=== PATIENT | female | born 1955 | race Caucasian/White ===

== ENCOUNTER → 2022-02-23 | Outpatient (CLI) | payer MEDICARE, SELFPAY ==
[2022-02-23 10:49] LABS: ALB/GLOB Ratio 1.1 RATIO (0.9-2.4); AST(SGOT) 16 U/L (15-37); Alanine Aminotransfer ALT/SGPT 24 U/L (13-56); Alkaline Phosphatase 64 U/L (45-117); Anion Gap 5 (5-15); BUN 13 mg/dL (7-18); BUN/Creat Ratio 14.2 RATIO (10-20); Calcium,Total 9.5 mg/dL (8.5-10.1); Chloride 109 mmol/L (98-107); Cholesterol 178 mg/dL (200); Creatinine, Serum 0.92 mg/dL (0.55-1.02); EST Glomerular Filtration Rate 65 mL/min (>60); Est Glom Filt Rate - Afr Amer 79 mL/min (>60); Globulin 3.8 g/dL (2.2-4.2); Glucose 105 mg/dL (74-106); High Density Lipoprotein 50 mg/dL; Magnesium 2.1 mg/dL (1.6-2.6); Potassium 4.4 mmol/L (3.5-5.1); Protein, Total 7.8 g/dL (6.4-8.2); Sodium Level 141 mmol/L (136-145); Thyroid Stim Hormone (TSH) 2.09 uIU/mL (0.358-3.74); Triglycerides 157 mg/dL; Very Low Density Lipoprotein 31 mg/dL (5-40)
[2022-02-23 11:35] LABS: Vitamin D,25 Hydroxy 32.5 ng/mL
== END | disposition home or self-care (01) ==
PROVIDERS: PCP Family Medicine; Referring Provider Family Medicine; Visit Provider Family Medicine
DX: E78.5 Hyperlipidemia, unspecified (principal); Z86.39 Personal history of other endocrine, nutritional and metabolic disease
CPT/HCPCS: 36415; 80053; 80061; 82306; 82330; 83735; 84443

== ENCOUNTER → 2022-08-23 | Outpatient (CLI) | payer MEDICARE, SELFPAY ==
[2022-08-23 12:41] LABS: Anion Gap 3 (5-15); BUN 15 mg/dL (7-18); BUN/Creat Ratio 14.3 RATIO (10-20); Calcium,Total 10.2 mg/dL (8.5-10.1); Chloride 107 mmol/L (98-107); Cholesterol 165 mg/dL (200); Creatinine, Serum 1.05 mg/dL (0.55-1.02); EST Glomerular Filtration Rate 56 mL/min (>60); Est Glom Filt Rate - Afr Amer 67 mL/min (>60); Glucose 98 mg/dL (74-106); High Density Lipoprotein 52 mg/dL; Potassium 4.4 mmol/L (3.5-5.1); Sodium Level 138 mmol/L (136-145); Triglycerides 72 mg/dL; Very Low Density Lipoprotein 14 mg/dL (5-40)
== END | disposition home or self-care (01) ==
PROVIDERS: PCP Family Medicine; Referring Provider Family Medicine; Visit Provider Family Medicine
DX: E78.5 Hyperlipidemia, unspecified (principal)
CPT/HCPCS: 36415; 80048; 80061

== ENCOUNTER → 2023-08-30 | Outpatient (CLI) | payer MEDICARE, SELFPAY ==
[2023-08-30 12:26] LABS: Ionized Calcium 5.38 mg/dL (4.36-5.20)
[2023-08-30 12:52] LABS: PTHIN 13.2 pg/mL (18.4-80.1)
[2023-08-30 13:04] LABS: ALB/GLOB Ratio 1.1 RATIO (0.9-2.4); AST(SGOT) 21 U/L (15-37); Alanine Aminotransfer ALT/SGPT 29 U/L (13-56); Albumin, Serum 4.3 g/dL (3.2-5.0); Alkaline Phosphatase 66 U/L (45-117); Anion Gap 6 (5-15); BUN 14 mg/dL (7-18); BUN/Creat Ratio 12.4 RATIO (10-20); Calcium,Total 10.7 mg/dL (8.5-10.1); Chloride 105 mmol/L (98-107); Cholesterol 177 mg/dL (200); Creatinine, Serum 1.13 mg/dL (0.55-1.02); EST Glomerular Filtration Rate 51 mL/min (>60); Est Glom Filt Rate - Afr Amer 62 mL/min (>60); Globulin 3.8 g/dL (2.2-4.2); Glucose 104 mg/dL (74-106); High Density Lipoprotein 51 mg/dL; Phosphorus 3.6 mg/dL (2.5-4.9); Potassium 4.6 mmol/L (3.5-5.1); Protein, Total 8.1 g/dL (6.4-8.2); Sodium Level 139 mmol/L (136-145); Thyroid Stim Hormone (TSH) 1.75 uIU/mL (0.358-3.74); Triglycerides 117 mg/dL; Very Low Density Lipoprotein 23 mg/dL (5-40)
[2023-08-30 13:27] LABS: Vitamin D,25 Hydroxy 60.1 ng/mL
[2023-08-30 18:58] LABS: Ionized Calcium Order ORDER TUBE
== END | disposition home or self-care (01) ==
LOC: MFPLAB 10:55
PROVIDERS: PCP Family Medicine; Visit Provider Family Medicine
DX: M81.0 Age-related osteoporosis without current pathological fracture (principal); E78.5 Hyperlipidemia, unspecified
CPT/HCPCS: 36415; 80053; 80061; 82306; 82330; 83735; 83970; 84100; 84443

== ENCOUNTER → 2023-09-14 | Outpatient (CLI) | payer MEDICARE, SELFPAY ==
--- NOTE | 2023-09-14 13:57 | BD_ITS ---
STUDY: DUAL ENERGY X-RAY ABSORPTIOMETRY / DXA REASON FOR EXAM: Female, 68 years old. [id number] TECHNIQUE: Bone Mineral Density (BMD) measurements of lumbar spine and bilateral hips were obtained. COMPARISON: None. FINDINGS: Lumbar Spine (L1-L4): g/cm2 (0.815) / T-score (-2.1) / Z-score (-0.1) Findings are suggestive of osteopenia with a high fracture risk. Left Femur Total: g/cm2 (0.855) / T-score (-0.7) / Z-score (0.7) Left Femoral Neck: g/cm2 (0.702) / T-score (-1.3) / Z-score (0.4) Right Femur Total: g/cm2 (0.851) / T-score (-0.7) / Z-score (0.7) Right Femoral Neck: g/cm2 (0.682) / T-score (-1.5) / Z-score (0.2) BD/Dexa Bone Density Study IMPRESSION: The patient is considered osteoporotic as outlined below according to World Alvin Organization (WHO) criteria with a high fracture risk. Reference Information: The T-score is the number of standard deviations above or below the standard which is normal for young adults at their peak bone mineral density. The World Health Organization (WHO) interprets the T-scores as follows: Above -1 Normal bone density Between -1 and -2.5 Osteopenia Equal to / or below -2.5 Osteoporosis As a practical clinical guideline, osteopenia may be graded as follows: Mild -1 through -1.5 Moderate -1.6 through -2.0 Severe -2.1 through -2.4 The Z-score is the number of standard deviations above or below age-matched controls. A Z-score of less than -1.5 would be considered abnormal. References: 1. NIH Osteoporosis and Related Bone Diseases www osteo.org 2. International Society for Clinical Densitometry www iscd.org 3. National Osteoporosis Foundation www nof.org Electronically Signed: Vitaliy Velarde MD at 14:38 EDT ,
== END | disposition home or self-care (01) ==
PROVIDERS: PCP Family Medicine; Referring Provider Family Medicine; Visit Provider Family Medicine
DX: Z00.00 Encounter for general adult medical examination without abnormal findings (principal); Z78.0 Asymptomatic menopausal state
CPT/HCPCS: 77080

== ENCOUNTER → 2023-12-29 | Outpatient (CLI) | payer MEDICARE, SELFPAY ==
[2023-12-29 09:50] LABS: Ionized Calcium Order ORDER TUBE
[2023-12-29 10:21] LABS: Ionized Calcium 5.07 mg/dL (4.36-5.20)
[2023-12-29 11:06] LABS: Anion Gap 8 (5-15); BUN 13 mg/dL (7-18); BUN/Creat Ratio 13.4 RATIO (10-20); Calcium,Total 9.6 mg/dL (8.5-10.1); Chloride 107 mmol/L (98-107); Creatinine, Serum 0.97 mg/dL (0.55-1.02); EST Glomerular Filtration Rate 61 mL/min (>60); Est Glom Filt Rate - Afr Amer 73 mL/min (>60); Glucose 102 mg/dL (74-106); Potassium 4.6 mmol/L (3.5-5.1); Sodium Level 139 mmol/L (136-145)
[2023-12-29 13:35] LABS: PTHIN 21.3 pg/mL (18.4-80.1)
== END | disposition home or self-care (01) ==
LOC: MFPLAB 08:41
PROVIDERS: PCP Family Medicine; Visit Provider Family Medicine
DX: E83.52 Hypercalcemia (principal)
CPT/HCPCS: 36415; 80048; 82330; 83970

== ENCOUNTER → 2024-08-27 | Outpatient (CLI) | payer MEDICARE, SELFPAY ==
[2024-08-27 11:31] LABS: Cholesterol 169 mg/dL (<=200); High Density Lipoprotein 54 mg/dL; Low Density Lipoprotein Calc. 99 mg/dL; Triglycerides 77 mg/dL; Very Low Density Lipoprotein 15 mg/dL (5-40); cholesterol:hdl ratio screen 3.11
[2024-08-27 11:32] LABS: ALB/GLOB Ratio 1.5 RATIO (0.9-2.4); AST(SGOT) 18 U/L (<=31); Alanine Aminotransfer ALT/SGPT 13 U/L (<=34); Albumin, Serum 4.6 g/dL (3.4-4.8); Alkaline Phosphatase 66 U/L (35-104); Anion Gap 12 (5-15); BUN 17 mg/dL (4-19); BUN/Creat Ratio 17.1 RATIO (10-20); Calcium,Total 10.3 mg/dL (7.6-11.0); Carbon Dioxide 23.8 mmol/L (21.0-32.0); Chloride 105 mmol/L (98-108); Creatinine, Serum 0.98 mg/dL (0.70-1.20); EST Glomerular Filtration Rate 62 (>60); Glucose 106 mg/dL (70-99); Potassium 4.5 mmol/L (3.3-5.1); Protein, Total 7.6 g/dL (5.9-8.4); Sodium Level 141 mmol/L (133-145); Total Bilirubin 0.74 mg/dL (0.00-1.30)
[2024-08-27 13:09] LABS: Vitamin D,25 Hydroxy 45.4 ng/mL (30-100)
== END | disposition home or self-care (01) ==
LOC: MTLAB 08:51
PROVIDERS: PCP Family Medicine; Referring Provider Family Medicine; Visit Provider Family Medicine
DX: Z00.00 Encounter for general adult medical examination without abnormal findings (principal)
CPT/HCPCS: 36415; 80053; 80061; 82306; 84443

== ENCOUNTER → 2024-09-03 | Outpatient (CLI) | payer MEDICARE, SELFPAY ==
--- NOTE | 2024-09-03 10:48 | RAD_ITS ---
PROCEDURE: CERV SPINE 4 OR 5 VIEWS 09/03/2024 REASON FOR EXAM: NECK PAIN TECHNIQUE: 5 views of the cervical spine. COMPARISON: None. FINDINGS: Mild osteopenia of the visualized bones. Reversal of the cervical lordosis, probably muscular spasm and pain. Grade 1 anterolisthesis of C4 on C5 measuring 4.2 mm. There are diffuse spondylotic changes. Findings are demonstrated to by diffuse disc space narrowing, osteophyte formation and degenerative endplate sclerosis. There is diffuse facet joint arthropathy with secondary bilateral neural foramina narrowing. No fracture or dislocation is seen. No aggressive lytic or blastic bony lesion is noted. Mild bilateral multifocal neural foraminal narrowing is noted from C2-C6 levels. RAD/Cerv Spine 4 or 5 Views IMPRESSION: Spondylosis. Reading Location: [facility]
== END | disposition home or self-care (01) ==
LOC: MTRAD 10:43
PROVIDERS: PCP Family Medicine; Referring Provider Family Medicine; Visit Provider Family Medicine
DX: M54.2 Cervicalgia (principal)
CPT/HCPCS: 72050

== ENCOUNTER 2024-10-07 03:34 | Emergency (ER) | payer MEDICARE, SELFPAY ==
[2024-10-07 03:34] VITALS: BP 159/94; PULSE 90; RESP 16; TEMP 36.3; O2SAT 99; BMI 30.7
--- NOTE | 2024-10-07 04:01 | EDS_ITS ---
HPI HPI - Female History of Present Illness Chief Complaint: Female C/O Detail of Chief Complaint: Pain right groin region Informant: patient and spouse/S.O. Pain Pain: Negative for Pelvic Pain, Vulvar Pain or Vaginal Pain Bleeding Issue: Positive for - (Status post hysterectomy with bilateral salpingo- oophorectomy); Negative for Vaginal bleeding, Passing clots or Passing tissue Associated Symptoms Associated Symptoms: Negative for Dysuria, Frequency, Urgency or Hematuria Narrative Narrative: Patient is a 69-year-old woman status post hysterectomy with bilateral salpingo- oophorectomy presents with pain in the right groin area. Symptoms started on Tuesday. Certain movements exacerbate her pain. She denies nausea, vomiting or diarrhea. She denies constipation. She denies dysuria, frequency, urgency or hematuria. She denies vaginal bleeding or vaginal discharge. There is no history of renal ureterolithiasis. She denies flank pain. She initially pointed to the area of the inguinal ring. She states it does go laterally. She denies flank pain. There is no history of direct trauma. She states she has 12 grandkids and she lifts them a lot. She did see her primary care physician who prescribed a muscle relaxant and meloxicam. She has not taken any meloxicam because she thought it was a muscle relaxant and has been taking the muscle relaxant, Flexeril with no improvement. She took 2 ibuprofen tablets yesterday and 2 tablets at 3 AM. She states she did have improvement after taking the 2 ibuprofen tablets yesterday. stated she almost canceled her doctor's appointment. She has not noted a rash. Patient stated she is nervous/concerned because she thinks it something serious. Prior similar symptoms: Yes Recent Illness/Hospitalization: No PFSH PFSH Medical History (Updated 10/07/24 @ 04:[address] Gerardo White MD) FH: total abdominal hysterectomy and bilateral salpingo-oophorectomy Allergy/AdvReac Type Severity Reaction Status Date / Time sulfamethoxazole (From Allergy Anaphylaxis Verified 10/07/24 03:38 Bactrim) Tetanus Vaccines and Toxoid Allergy Rash Verified 10/07/24 03:38 trimethoprim (From Bactrim) Allergy Anaphylaxis Verified 10/07/24 03:38 Social History (Updated 10/07/24 @ 04:[address] Gerardo White MD) household members: spouse Smoking Status: Unknown if ever smoked ROS ROS ED Constitutional Constitutional ED: Denies chills, fever(s), subjective or sweats Respiratory/Chest Respiratory/Chest: Denies cough, dyspnea or dyspnea on exertion Gastrointestinal Gastrointestinal: Denies abdominal pain, constipation, diarrhea, melena, nausea or vomiting Genitourinary Genitourinary ED: Denies dysuria, hematuria or urinary frequency Musculoskeletal Musculoskeletal: Reports other Details: Per HPI narrative ; Denies arthralgias, myalgias or neck pain Integumentary Denies abscess, Abrasions or rash Neurologic Neurologic: Denies paresthesias or weakness Psychiatric Psychiatric: Reports anxiety Hematologic/Lymphatic Hematologic/Lymphatic: Denies easy bleeding or easy bruising EXAM Physical Exam Const Vital Signs: 10/07/24 03:34 Temperature 97.4 F L Temperature Source Oral Pulse Rate 90 Respiratory Rate 16 Blood Pressure 159/94 H Blood Pressure Mean 115 Pulse Ox 99 Positive well nourished Constitutional Narrative: BMI is 30.7. General Appearance ED: NAD; Negative for pallor HEENT Reports moist mucous membranes HEENT Narrative: Head is atraumatic normocephalic. Ears normal. Nares patent. Eyes PERRL and EOMs intact bilaterally General Eye ED: Yes scleral icterus Neck supple and no JVD Resp normal respiratory effort Cardio regular rate and regular rhythm GI normal to inspection, nondistended, normoactive bowel sounds, soft to palpation, non-tender, non-distended and no masses GI Narrative: There is tenderness near the right inguinal groove. There is tenderness along insertion site of the abductor quadricep longus and lower abdominal wall. Patient had mild discomfort with Agu[place] Zoila 4 test insertion site of the quadricep abductor muscle and femoris longus muscle. Auscultation: normoactive bowel sounds Palpation: Negative for guarding, rigid or mass Narrative: There is no estella lymphadenopathy. There is no inguinal mass or defect appreciated. Having the patient do a sit up causes her discomfort in the right inguinal area. There is no bulge appreciated. Extremity normal to inspection and full ROM Extremity Narrative: There is no vascular compromise. DP and PT pulse were palpable on the right Neuro oriented x3, CN's II-XII intact bilaterally and no sensory deficits noted Sensorium / Orientation: alert Motor Exam: strength 5/5 throughout Psych Mood & Affect: anxious Skin no rashes or lesions noted and no wounds General Skin Exam: Negative for jaundice or pallor MDM MDM MDM Narrative Medical decision making narrative: Patient history and physical success with muscular pain. She has no findings or concern at this time for inguinal hernia. There is no inguinal lymphadenopathy. Patient has no guarding or peritoneal findings. Since the pain is worse with movement per history and exam this is muscular pain. She was instructed to take the meloxicam ice and follow-up with her doctor as needed Discharge Plan Triage Chief Complaint: Female C/O ED Provider: Gerardo White Dx/Rx/DC Orders Clinical Impression: Strain of abdominal muscle, Strain of right quadriceps muscle, fascia and tendon, initial encounter, Elevated blood-pressure reading without diagnosis of hypertension Instructions: ED Hypertension, To Be Confirmed, ED Muscle Strain, Abdomen Primary Care Provider: Shiva Caro Referrals: Shiva Caro MD [Primary Care Provider] - 1 Week if not improving Activity Restrictions/Additional Instructions: 1. Take the meloxicam as prescribed. 2. Apply ice to your right groin 6-8 times a day 3. Avoid activity that causes you pain Print Language: New Zealander Disposition Disposition: Home, Self Care
[2024-10-07 04:16] VITALS: BP 114/84; PULSE 80; RESP 18; TEMP 35.6; O2SAT 96
== END 2024-10-07 04:17 | disposition home or self-care (01) ==
PROVIDERS: Emergency Provider Emergency Medicine; PCP Family Medicine; Visit Provider Emergency Medicine
DX: S76.111A Strain of right quadriceps muscle, fascia and tendon, initial encounter (principal); Z90.710 Acquired absence of both cervix and uterus; R03.0 Elevated blood-pressure reading, without diagnosis of hypertension; R10.31 Right lower quadrant pain; S39.011A Strain of muscle, fascia and tendon of abdomen, initial encounter; Z90.722 Acquired absence of ovaries, bilateral
CPT/HCPCS: 99282

== ENCOUNTER 2025-03-26 15:53 | Emergency (ER) | payer MEDICARE, SELFPAY ==
[2025-03-26 15:55] VITALS: BP 159/92; PULSE 92; RESP 16; TEMP 37.1; O2SAT 100; BMI 30.6
--- NOTE | 2025-03-26 17:38 | EKG12_ITS ---
Test Reason : HTN Blood Pressure : */* mmHG Vent. Rate : 101 BPM Atrial Rate : 101 BPM P-R Int : 154 ms QRS Dur : 78 ms QT Int : 368 ms P-R-T Axes : 43 -32 32 degrees QTcB Int : 477 ms Sinus tachycardia Left axis deviation Cannot rule out Septal infarct , age undetermined Abnormal ECG Confirmed by Thang Hanson ([id number]), news videotape editor MABLE MORALES ([id number]) on 03/27/2025 10:34:51 AM Referred By: Confirmed By: Thang Hanson
--- NOTE | 2025-03-26 17:39 | EX.ED.DYSGE1 ---
HPI History of Present Illness Chief Complaint: Hypertension Detail of Chief Complaint: High blood pressure Informant: patient and spouse/S.O. Narrative Narrative: Patient presents to the emergency department with complaint of of not feeling well this morning and then noting elevated blood pressure. She does have history of hypertension but normally very well-controlled and her pressure normally is in the 120s over 60s. This morning she just felt like she could not focus felt a little woozy and so she states that that resolved after a short time and she went to take a nap. She would wake up intermittently and just did not feel like she was breathing right and so her advised her to come in and get evaluated. Patient states that she then went on and had a large bowel movement and symptoms have otherwise resolved. She feels well. She has not been ill recently. She has had no recent travel or surgery. She denies fever or cough. She denies urinary symptoms. No real history of anxiety although she did feel anxious and jittery earlier. PFSH [facility] Medical History (Updated 03/26/25 @ 19:[address] Caio Hoskins DO) Hypertension FH: total abdominal hysterectomy and bilateral salpingo-oophorectomy Home Medications Medication Instructions Recorded Last Taken Type calcium 600 mg capsule 600 mg PO DAILY 03/26/25 Unknown History cholecalciferol (vitamin D3) 50 50 mcg PO DAILY 03/26/25 Unknown History mcg (2,000 unit) capsule (D3-2000) lisinopril 10 mg tablet 10 mg PO DAILY 03/26/25 Unknown History loratadine 10 mg tablet (Allergy 10 mg PO DAILY 03/26/25 Unknown History Relief (loratadine)) simvastatin 40 mg tablet 40 mg PO QHS 03/26/25 Unknown History Allergy/AdvReac Type Severity Reaction Status Date / Time sulfamethoxazole (From Allergy Anaphylaxis Verified 03/26/25 15:54 Bactrim) Tetanus Vaccines and Toxoid Allergy Rash Verified 03/26/25 15:54 trimethoprim (From Bactrim) Allergy Anaphylaxis Verified 03/26/25 15:54 Surgical History (Updated 03/26/25 @ 18:38 by Kushal Pineda) S/P removal of parathyroid gland Hx of breast reduction, elective Social History (Updated 10/07/24 @ 04:[address] Gerardo White MD) household members: spouse Smoking Status: Never smoker ROS ROS ED ROS Narrative Not feeling well Review of Systems ROS Unobtainable: other Constitutional Constitutional ED: Reports lethargy; Denies chills, fever(s), sweats or weight loss Eyes Eyes: Denies blurry vision, change in vision or diplopia ENT ENT ED: Denies rhinorrhea or sore throat Cardiovascular Cardiovascular: Denies chest pain, orthopnea or racing heartbeat Respiratory/Chest Respiratory/Chest: Denies cough, dyspnea, dyspnea on exertion, orthopnea or sputum Gastrointestinal Gastrointestinal: Denies abdominal pain, diarrhea, nausea or vomiting Genitourinary Genitourinary ED: Denies dysuria, hematuria or urinary frequency Musculoskeletal Musculoskeletal: Denies arthralgias, back pain, myalgias or neck pain Integumentary Denies abscess, Abrasions or rash Neurologic Neurologic: Reports other Details: Lightheaded ; Denies headache(s) or weakness Psychiatric Psychiatric: Denies anxiety, depression or suicidal thoughts Endocrine Endocrinology: Denies polydipsia, polyphagia or polyuria Hematologic/Lymphatic Hematologic/Lymphatic: Denies easy bleeding, easy bruising or lymphadenopathy Allergic/Immunologic Allergic/Immunologic ED: Denies mouth swelling, tongue swelling or urticaria EXAM Physical Exam Const Vital Signs: 03/26/25 15:55 03/26/25 18:35 Temperature 98.7 F Temperature Source Oral Pulse Rate 92 106 H Respiratory Rate 16 19 H Blood Pressure 159/92 H 183/92 H Blood Pressure Mean 114 122 Pulse Ox 100 95 Oxygen Delivery Method Room Air Positive well nourished and well developed General Appearance ED: well developed and NAD HEENT Reports TM's clear and moist mucous membranes normocephalic and atraumatic; Negative for trauma or tenderness Tympanic Membrane ED: Yes TM's clear Eyes PERRL and EOMs intact bilaterally General Eye ED: Negative for pale conjunctiva or scleral icterus Neck no lymphadenopathy, supple and no JVD General: Negative for tenderness Chest Wall inspection of chest normal and palpation of chest normal Chest: Negative for tenderness Resp normal respiratory effort and clear to auscultation bilaterally Effort and Inspection: Negative for respiratory distress or pain with movement Auscultation: Negative for rhonchi, wheezes or diminished lung sounds Cardio regular rate, regular rhythm, S1 normal heart sound, S2 normal heart sound and no murmurs Peripheral Pulses: pulses 2+ throughout GI normal to inspection, nondistended, normoactive bowel sounds, soft to palpation, non-tender, non-distended and no masses Back/Spine no CVA tenderness and no thoracic nor lumbar tenderness Extremity normal to inspection General Extremety ED: Negative for edema General Extremity: Negative for edema Neuro oriented x3, CN's II-XII intact bilaterally, no sensory deficits noted and gait normal Sensorium / Orientation: awake, alert, oriented to person, oriented to place and oriented to time Motor Exam: strength 5/5 throughout and strength abnormal Psych mental status grossly normal Skin no rashes or lesions noted and no wounds MDM MDM MDM Narrative Medical decision making narrative: Patient presents to the emergency department with complaint of elevated blood pressure and just did not feel right this morning. Patient also complained of some dyspnea while asleep and felt like she was not getting enough air and then she felt shaky. She has been under increased stress as her brother recently had surgery for glioblastoma. Patient also states she has been eating very poorly and has been eating a lot of salt. IV line established on arrival and she was placed on a cardiac cath lab technologist. EKG obtained shows sinus tachycardia with a rate of 101 bpm with no acute ST segment changes. CBC with differential obtained showed a white count 6.4 with hemoglobin 14 and platelet count of 222. Chemistries unremarkable. Troponin was less than 6. Urinalysis normal. 1 view chest x-ray unremarkable. Without treatment current blood pressure in the 140 systolic. She really otherwise has no complaints. There is no risk factors for PE. At this point recommend that she follow her blood pressure and keep a journal and follow-up with primary care physician within next 7 to 10 days. Lab Data Attestation: I reviewed the patient's lab results. Labs: Laboratory Results - last 24 hr 03/26/25 03/26/25 17:51 18:35 WBC 6.4 RBC 4.84 Hgb 14.3 Hct 43.0 MCV 88.8 MCH 29.5 MCHC 33.3 RDW Std Deviation 44.9 H RDW Coeff of Ajay 13.9 Plt Count 222 MPV 10.6 Immature Gran % (Auto) 0.300 Neut % (Auto) 61.6 Lymph % (Auto) 28.7 Burke % (Auto) 6.9 Eos % (Auto) 1.9 Baso % (Auto) 0.6 Absolute Neuts (auto) 3.9 Absolute Lymphs (auto) 1.82 Nucleated RBC % 0 Sodium 142 Potassium 4.2 Chloride 106 Carbon Dioxide 23.9 Anion Gap 12 BUN 10 Creatinine 1.13 Estim Creat Clear Calc 45.92 L Est GFR (MDRD) Non-Af 52 L BUN/Creatinine Ratio 8.8 L Glucose 118 H Calcium 9.2 Troponin T High Sens < 6 Urine Color Straw Urine Clarity Clear Urine pH 7.0 Ur Specific [place] 1.005 Urine Protein Negative Urine Glucose (UA) Normal Urine Ketones Negative Urine Occult Blood Negative Urine Nitrite Negative Urine Bilirubin Negative Urine Urobilinogen Normal Ur Leukocyte Esterase Negative Radiography Diagnostic Testing: Clinical Impression(s) from Imaging Studies Chest X-Ray 03/26/25 18:44 IMPRESSION: No acute cardiopulmonary disease. Reading Location: [facility] 1 view chest x-ray obtained interpreted by myself no evidence of infiltrate or pneumothorax or acute disease process. Radiology agreement EKG Initial EKG: Attestation: I personally reviewed and interpreted this EKG as follows: Comments: Sinus rhythm with rate of 101 bpm with old septal infarct no acute ST segment changes Discharge Plan Triage Chief Complaint: Hypertension ED Provider: Caio Hoskins Dx/Rx/DC Orders Clinical Impression: Hypertension Instructions: ED Hypertension, Established Prescriptions: No Action simvastatin 40 mg tablet 40 mg PO QHS lisinopril 10 mg tablet 10 mg PO DAILY loratadine [Allergy Relief (loratadine)] 10 mg tablet 10 mg PO DAILY cholecalciferol (vitamin D3) [D3-2000] 50 mcg (2,000 unit) capsule 50 mcg PO DAILY calcium 600 mg capsule 600 mg PO DAILY Primary Care Provider: Shiva Caro Referrals: Shiva Caro MD [Primary Care Provider, Family Practice] - 1 Week Print Language: Belarusian Disposition Disposition: Home, Self Care D/C Safety Score for UGIB Assessment Ruel-Blatchford Bleeding Score (GBS): Stratifies upper GI bleeding patients who are "low-risk" and candidates for outpatient management. Hemoglobin, BUN, Recent Vital Signs: Hgb 14.3 g/dL (12.0-15.0) 03/26/25 17:51 BUN 10 mg/dL (4-19) 03/26/25 17:51 Pulse Rate 106 Blood Pressure 183/92 Total Risk Score: 2 Score Interpretation: Score of 0: A GBS of 0 is a “Low Risk” GI bleed, and is highly sensitive (99.6% in a 2007 retrospective study) for predicting which patients did not require any “medical intervention”: blood transfusion, endoscopy, or surgery. This was confirmed in a 2009 [facility] study where patients with a score of 0 were actually discharged and had no GI bleeding mortality at 6 month followup Score above 0: A GBS greater than zero suggests a “High Risk” GI bleed that is likely to require “medical intervention”: transfusion, endoscopy, or surgery. A higher GBS also correlated with a higher likelihood of needing intervention Scores >/= 6 are associated with >50% risk of needing intervention D/C Safety Score for LGIB Assessment Assessment Tool: Readmission and adverse event risk in patients with acute lower GI bleeding. Age, in years: >/= 70 Hemoglobin and Recent Vital Signs: Hgb 14.3 g/dL (12.0-15.0) 03/26/25 17:51 Pulse Rate 106 03/26/25 18:35 Blood Pressure 183/92 03/26/25 18:35 Probability of safe discharge: 99% Total Risk Score: 2 Score Interpretation: Probability Percentage of safe discharge (absence of rebleeding, blood transfusion, therapeutic intervention, 28 day readmission, or ) Score of 8 or below: Consider discharge, with appropriate precautions. Score of 9 or above: Discharge NOT recommended. Consider admission with further workup and resuscitation as necessary.
--- OUTSIDE RECORDS SUMMARY | 2025-03-26 18:10 | XMS RPT_ITS | CCD ---
Author Organization [facility] Care Team Providers Care Supervisor Propellant Charge Loading Name Role Phone Unavailable Primary Care Provider UnavailBENNIE Giraldo Referring Unavailable Vania SALMERON, Dr. Shannon Primary Care Provider Vania SALMERON, Dr. Shannon Attending Provider [phone] Vania SALMERON, Dr. Shannon Referring Provider Shiva Caro Attending Unavailable Shiva Caro Primary Care Unavailable Shiva Caro Referring Unavailable Shiva Caro Attending Unavailable Shiva Caro Primary Care Unavailable Shiva Caro Referring Unavailable White Gerardo Attending Unavailable Shiva Caro Primary Care Unavailable Shiva Caro Primary Care Unavailable Shiva Caro Attending Unavailable Allergies Allergy Classification Reported Allergen(s) Allergy Type Date of Onset Reaction(s) Facility (5 sources) Sulfonamides (Antibiotic); Translations: [SULFA (SULFONAMIDE ANTIBIOTICS)] Propensity to adverse reactions to drug 11-06-19 [facility] Work Phone: (5 sources) Tetanus Vaccines And Toxoid; Translations: [TETANUS VACCINES AND TOXOID] Propensity to adverse reactions to drug 11-06-19 [facility] Work Phone: (1 source) Sulfamethoxazole Drug Allergy 10-08-19 [facility] Repository (1 source) Trimethoprim Drug Allergy 10-08-19 [facility] Repository (1 source) Tetanus Vaccines and Toxoid Drug allergy (disorder) 10-08-19 [facility] Repository Problems Active Problems Problem Classification Problem Date Documented Da te Episodic/Chronic Abdominal pain (1 source) Right lower quadrant pain; Translations: [Right lower quadrant pain] Onset: 10-12-2024 Episodic Other nutritional; endocrine; and metabolic disorders (1 source) Hypercalcemia; Translations: [Hypercalcemia] Onset: 01-19-2024 Chronic Spondylosis; intervertebral disc disorders; other back problems (1 source) Cervicalgia; Translations: [Cervicalgia] Onset: 09-06-2024 Episodic Past or Other Problems Problem Classification Problem Date Documented Da te Episodic/Chronic Residual codes; unclassified (3 sources) Kidney donor; 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 Shiva Caro MD Status:[facility] ER Location: ED HPI HPI - Female History of Present Illness Chief Complaint: Female C/O Detail of Chief Complaint: Pain right groin region Informant: patient and spouse/S.O. Pain Pain: Negative for Pelvic Pain, Vulvar Pain or Vaginal Pain Bleeding Issue: Positive for - (Status post hysterectomy with bilateral salpingo-oophorectomy ); Negative for Vaginal bleeding, Passing clots or Passing tissue Associated Symptoms Associated Symptoms: Negative for Dysuria, Frequency, Urgency or Hematuria Narrative Narrative: Patient is a 69-year-old woman status post hysterectomy with bilateral salpingo-oophorectomy presents with pain in the right groin area. Symptoms started on Tuesday. Certain movements exacerbate her pain. She denies nausea, vomiting or diarrhea. She denies constipation. She denies dysuria, frequency, urgency or hematuria. She denies vaginal bleeding or vaginal discharge. There is no history of renal ureterolithiasis. She denies flank pain. She initially pointed to the area of the inguinal ring. She states it does go laterally. She denies flank pain. There is no history of direct trauma. She states she has 12 grandkids and she lifts them a lot. She did see her primary care physician who prescribed a muscle relaxant and meloxicam. She has not taken any meloxicam because she thought it was a muscle relaxant and has been taking the muscle relaxant, Flexeril with no improvement. She took 2 ibuprofen tablets yesterday and 2 tablets at 3 AM. She states she did have improvement after taking the 2 ibuprofen tablets yesterday. stated she almost canceled her doctor's appointment. She has not noted a rash. Patient stated she is nervous/concerned because she thinks it something serious. Prior similar symptoms: Yes Recent Illness/Hospitalizati on: No PFSH PFSH Medical History (Updated 10/07/24 @ 04:[address] Gerardo White MD) FH: total abdominal hysterectomy and bilateral salpingo-oophorectomy Allergy/AdvReac Type Severity Reaction Status Date / Time sulfamethoxazole (From Allergy Anaphylaxis Verified 10/07/24 03:38 Bactrim) Tetanus Vaccines and Toxoid Allergy Rash Verified 10/07/24 03:38 trimethoprim (From Bactrim) Allergy Anaphylaxis Verified 10/07/24 03:38 Social History (Updated 10/07/24 @ 04:[address] Gerardo White MD) household members: spouse Smoking Status: Unknown if ever smoked ROS ROS ED Constitutional Constitutional ED: Denies chills, fever(s), subjective or sweats Respiratory/Chest Respiratory/Chest: Denies cough, dyspnea or dyspnea on exertion Gastrointestinal Gastrointestinal: Denies abdominal pain, constipation, diarrhea, melena, nausea or vomiting Genitourinary Genitourinary ED: Denies dysuria, hematuria or urinary frequency Musculoskeletal Musculoskeletal: Reports other Details: Per HPI narrative ; Denies arthralgias, myalgias or neck pain Integumentary Denies abscess, Abrasions or rash Neurologic Neurologic: Denies paresthesias or weakness Psychiatric Psychiatric: Reports anxiety Hematologic/Lymphatic Hematologic/Lymphatic : Denies easy bleeding or easy bruising EXAM Physical Exam Const Vital Signs: 10/07/24 03:34 Temperature 97.4 F L Temperature Source Oral Pulse Rate 90 Respiratory Rate 16 Blood Pressure 159/94 H Blood Pressure Mean 115 Pulse Ox 99 Positive well nourished Constitutional Narrative: BMI is 30.7. General Appearance ED: NAD; Negative for pallor HEENT Reports moist mucous membranes HEENT Narrative: Head is atraumatic normocephalic. Ears normal. Nares patent. Eyes PERRL and EOMs intact bilaterally General Eye ED: Yes scleral icterus Neck supple and no JVD Resp normal respiratory effort Cardio regular rate and regular rhythm GI normal to inspection, nondistended, normoactive bowel sounds, soft to palpation, non-tender, non- distended and no masses GI Narrative: There is tenderness near the right inguinal groove. There is tenderness along insertion site of the abductor quadricep longus and lower abdominal wall. Patient had mild discomfort with Aguila Zoila 4 test insertion site of the quadricep abductor muscle and femoris longus muscle. Auscultation: normoactive bowel sounds Palpation: Negative for guarding, rigid or mass Narrative: There is no estella lymphadenopathy. There is no inguinal mass or defect appreciated. Having the patient do a sit up causes her discomfort in the right inguinal area. There is no bulge appreciated. Extremity normal to inspection and full ROM E (more content not included)... Normal [facility] Cerv Spine 4 or 5 Viewson Cerv Spine 4 or 5 Views [facility] [address] [place], [place] [address] Cerv Spine 4 or 5 Views MR#: [id number] Acct: [id number] Name: MITALI JOHNSON Rep #: [id number] : 1955 F 69 From: Taylor thibodeaux MD PCP: Dr. Shiva Caro MD Status: REG CLI Study: Cerv Spine 4 or 5 Views Date of Exam: 09/03/24 Exam# [id number] Ordering Dr: Shiva Caro PROCEDURE: CERV SPINE 4 OR 5 VIEWS 09/03/2024 REASON FOR EXAM: NECK PAIN TECHNIQUE: 5 views of the cervical spine. COMPARISON: None. FINDINGS: Mild osteopenia of the visualized bones. Reversal of the cervical lordosis, probably muscular spasm and pain. Grade 1 anterolisthesis of C4 on C5 measuring 4.2 mm. There are diffuse spondylotic changes. Findings are demonstrated to by diffuse disc space narrowing, osteophyte formation and degenerative endplate sclerosis. There is diffuse facet joint arthropathy with secondary bilateral neural foramina narrowing. No fracture or dislocation is seen. No aggressive lytic or blastic bony lesion is noted. Mild bilateral multifocal neural foraminal narrowing is noted from C2-C6 levels. RAD/Cerv Spine 4 or 5 Views IMPRESSION: Spondylosis. Reading Location: [place] [address] CC: Dr. Shiva Caro MD Market Risk Specialist: Signed Normal [facility] Anion gap in Serum or Plasma Ordered By: Shiva Caro on 08-27-2024 Anion gap [Moles/Vol] 12 mmol/L 5-15 [facility] BUN/creatinine ratioOrdered By: Shiva Caro on 08-27-2024 Urea nitrogen/Creatinine [Mass ratio] 17.1 mg/mg 10-20 [facility] Bilirubin, totalOrdered By: Shiva Caro on 08-27-2024 Bilirubin [Mass/Vol] 0.74 mg/dL 0.00-1.30 [facility] Calculated very low density lipoprotein (VLDL) cholesterol measurementOrdered By: Shiva Caro on 08-27-2024 VLDL Cholesterol 15 mg/dL 5-40 [facility] Carbon dioxide, total [Moles /volume] in Central venous bloodOrdered By: Shiva Caro on 08-27-2024 CO2 [Moles/Vol] 23.8 mmol/L 21.0-32.0 [facility] Chloride assayOrdered By: Jluis Caro on 08-27-2024 Chloride [Moles/Vol] 105 mmol/L 98-108 [facility] Comprehensive Metabolic Prof ilon 08-27-2024 Albumin [Mass/Vol] 4.6 g/dL Normal 3.4-4.8 [facility] Comment on above: Order Comment: Order Date: 08/27/24 Order Info: [id number] - CMP Order Info: [id number] - LIPID Order Info: [id number] - TSH Performed By: #### L [id number], L500.4100, L500.4050 #### [facility] [address] [place], [place], [id number] Albumin/Globulin [Mass ratio] 1.5 {ratio} Normal 0.9-2.4 [facility] Comment on above: Order Comment: Order Date: 08/27/24 Order Info: [id number] - CMP Order Info: [id number] - LIPID Order Info: [id number] - TSH Performed By: #### L [id number], L500.4100, L500.4050 #### [facility] [address] [place], [address] ALK PHOS 66 U/L Normal 35-104 [facility] Comment on above: Order Comment: Order Date: 08/27/24 Order Info: [id number] - CMP Order Info: [id number] - LIPID Order Info: [id number] - TSH Performed By: #### L [id number], L500.4100, L500.4050 #### [facility] [address] [place], [address] ALT [Catalytic activity/Vol] 13 U/L Normal <=34 [facility] Comment on above: Order Comment: Order Date: 08/27/24 Order Info: 785- - CMP Order Info: [id number] - LIPID Order Info: [id number] - TSH Performed By: #### L [id number], L500.4100, L500.4050 #### [facility] [address] [place], [address] AST [Catalytic activity/Vol] 18 U/L Normal <=31 [facility] Comment on above: Order Comment: Order Date: 08/27/24 Order Info: 785- - CMP Order Info: [id number] - LIPID Order Info: 3 - TSH Performed By: #### L [id number], L500.4100, L500.4050 #### [facility] [address] [place], [address] Bilirubin [Mass/Vol] 0.74 mg/dL Normal 0.00-1.30 [facility] Comment on above: Order Comment: Order Date: 08/27/24 Order Info: 785-1 - CMP Order Info: [id number] - LIPID Order Info: [id number] - TSH Performed By: #### L [id number], L500.4100, L500.4050 #### [facility] [address] [place], [address] BUN/CRE 17.1 RATIO Normal 10-20 [facility] Comment on above: Order Comment: Order Date: 08/27/24 Order Info: 07- - CMP Order Info: [id number] - LIPID Order Info: 3 - TSH Performed By: #### L [id number], L500.4100, L500.4050 #### [facility] [address] [place], [address] Calcium [Mass/Vol] 10.3 mg/dL Normal 7.6-11.0 [facility] Comment on above: Order Comment: Order Date: 08/27/24 Order Info: 0786 - CMP Order Info: - LIPID Order Info: 3 - TSH Performed By: #### L [id number], L500.4100, L500.4050 #### [facility] [address] [place], [address] Chloride [Moles/Vol] 105 mmol/L Normal 98-108 [facility] Comment on above: Order Comment: Order Date: 08/27/24 Order Info: 0786 - CMP Order Info: [id number] - LIPID Order Info: 3 - TSH Performed By: #### L [id number], L500.4100, L500.4050 #### [facility] [address] [place], [address] CO2 [Moles/Vol] 23.8 mmol/L Normal 21.0-32.0 [facility] Comment on above: Order Comment: Order Date: 08/27/24 Order Info: 0786-1 - CMP Order Info: [id number] - LIPID Order Info: 3 - TSH Performed By: #### L [id number], L500.4100, L500.4050 #### [facility] [address] [place], [address] Creatinine [Mass/Vol] 0.98 mg/dL Normal 0.70-1.20 [facility] Comment on above: Order Comment: Order Date: 08/27/24 Order Info: 785- - CMP Order Info: [id number] - LIPID Order Info: [id number] - TSH Performed By: #### L [id number], L500.4100, L500.4050 #### [facility] [address] [place], [address] GAP 12 Normal 5-15 [facility] Comment on above: Order Comment: Order Date: 08/27/24 Order Info: 785-05 - CMP Order Info: - LIPID Order Info: [id number] - TSH Performed By: #### L 501.9520, L500.4100, L500.4050 #### [facility] [address] [place], [address] GFR/1.73 sq M.predicted among non-blacks MDRD (S/P/Bld) [Vol rate/Area] 62 mL/min/{1.73_m2} Normal >60 [facility] Comment on above: Order Comment: Order Date: 08/27/24 Order Info: 785-05 - CMP Order Info: - LIPID Order Info: [id number] - TSH Result Comment: mL/m in/1.73m2 CKD-EPI Creatinine Equation (2020) Performed By: #### L [id number], L500.4100, L500.4050 #### [facility] [address] [place], [address] Globulin (S) [Mass/Vol] 3.0 g/dL Normal 2.2-4.2 [facility] Comment on above: Order Comment: Order Date: 08/27/24 Order Info: 785-05 - CMP Order Info: - LIPID Order Info: [id number] - TSH Performed By: #### L [id number], L500.4100, L500.4050 #### [facility] [address] [place], [address] Glucose [Mass/Vol] 106 mg/dL High 70-99 [facility] Comment on above: Order Comment: Order Date: 08/27/24 Order Info: 785- - CMP Order Info: [id number] - LIPID Order Info: 3 - TSH Performed By: #### L [id number], L500.4100, L500.4050 #### [facility] [address] [place], [address] Potassium [Moles/Vol] 4.5 mmol/L Normal 3.3-5.1 [facility] Comment on above: Order Comment: Order Date: 08/27/24 Order Info: 785-05 - CMP Order Info: - LIPID Order Info: [id number] - TSH Performed By: #### L [id number], L500.4100, L500.4050 #### [facility] [address] [place], [address] Sodium [Moles/Vol] 141 mmol/L Normal 133-145 [facility] Comment on above: Order Comment: Order Date: 08/27/24 Order Info: 0786 - CMP Order Info: - LIPID Order Info: 3 - TSH Performed By: #### L [id number], L500.4100, L500.4050 #### [facility] [address] [place], [address] T PROT 7.6 g/dL Normal 5.9-8.4 [facility] Comment on above: Order Comment: Order Date: 08/27/24 Order Info: 0786- - CMP Order Info: [id number] - LIPID Order Info: [id number] - TSH Performed By: #### L 501.9520, L500.4100, L500.4050 #### [facility] [address] [place], [address] Urea nitrogen [Mass/Vol] 17 mg/dL Normal 4-19 [facility] Comment on above: Order Comment: Order Date: 08/27/24 Order Info: 0786-1 - CMP Order Info: [id number] - LIPID Order Info: 6-3 - TSH Performed By: #### L [id number], L500.4100, L500.4050 #### [facility] [address] [place], [address] GFR/1.73 sq M.predicted dusty g non-blacks MDRD (S/P/Bld) [Vol rate/Area]Ordered By: Shiva Caro on 08-27-2024 Estimated GFR (MDRD) Non-Af Amer 62 >60 [facility] Comment on above: mL/min/1.73m2 CKD-EP I Creatinine Equation (2020) LDL calc ser/plasOrdered By: Shiva Caro on 08-27-2024 LDL Cholesterol, Calculated 99 mg/dL [facility] Comment on above: Dcnvzhyjtm=736-448 m g/dL & Higher Mett=228 mg/dL or greater Laboratory - Chemistry and C hemistry - challengeOrdered By: Shiva Caro on 08-27-2024 AST [Catalytic activity/Vol] 18 U/L <32 [facility] Lipid Profileon 08-27-2024 CHOL:HDL 3.11 Normal [facility] Comment on above: Order Comment: Order Date: 08/27/24 Order Info: 0786- - CMP Order Info: [id number] - LIPID Order Info: 3016-3 - TSH Performed By: #### L 501.9520, L500.4100, L500.4050 #### [facility] [address] [place], [address] Cholesterol [Mass/Vol] 169 mg/dL Normal <=200 [facility] Comment on above: Order Comment: Order Date: 08/27/24 Order Info: 0786- - CMP Order Info: [id number] - LIPID Order Info: [id number] - TSH Result Comment: Chol esterol level, Desirable <200 mg/dL Borderline high cholesterol 200-239 mg/dL High cholesterol >=240 mg/dL Recommendations of the NCEP Adult Treatment Panel for the following risk-cutoff thresholds for the [place] population. Performed By: #### L [id number], L500.4100, L500.4050 #### [facility] [address] [place], [address] Cholesterol in HDL [Mass/Vol] 54 mg/dL Normal [facility] Comment on above: Order Comment: Order Date: 08/27/24 Order Info: 0786- - CMP Order Info: - LIPID Order Info: [id number] - TSH Result Comment: Dorie onal Cholesterol Education Program (NCEP) guidelines: <40 mg/dL: Low HDL-cholesterol (major risk factor for CHD) >= 60 mg/dL: High HDL-cholesterol (negative risk factor for CHD) HDL-cholesterol is affected by a number of factors, e.g. smoking, exercise, hormones, sex and age. Performed By: #### L [id number], L500.4100, L500.4050 #### [facility] [address] [place], [address] Cholesterol in LDL [Mass/Vol] 99 mg/dL Normal [facility] Comment on above: Order Comment: Order Date: 08/27/24 Order Info: 0786- - CMP Order Info: [id number] - LIPID Order Info: 3 - TSH Result Comment: Bord qtqems=814-335 mg/dL Higher Osow=762 mg/dL or greater Performed By: #### L 501.9520, L500.4100, L500.4050 #### [facility] [address] [place], [address] Cholesterol in VLDL [Mass/Vol] 15 mg/dL Normal 5-40 [facility] Comment on above: Order Comment: Order Date: 08/27/24 Order Info: 0786-1 - CMP Order Info: [id number] - LIPID Order Info: 3016-3 - TSH Performed By: #### L 501.9520, L500.4100, L500.4050 #### [facility] [address] [place], [address] Triglyceride [Mass/Vol] 77 mg/dL Normal [facility] Comment on above: Order Comment: Order Date: 08/27/24 Order Info: 0786-1 - CMP Order Info: [id number] - LIPID Order Info: [id number] - TSH Result Comment: The drugs N-Acetylcysteine and Metamizole may falsely depress this assay. Normal range: <150 mg/dL Borderline High: 150-199 mg/dL High: 200-499 mg/dL Very High: >500 mg/dL Performed By: #### L [id number], L500.4100, L500.4050 #### [facility] [address] [place], [address] Potassium (Unsp spec) [Mass/ Vol]Ordered By: Shiva Caro on 08-27-2024 Potassium [Moles/Vol] 4.5 mmol/L 3.3-5.1 [facility] Screening total cholesterol/ high density lipoprotein (HDL) cholesterol ratioOrdered By: Shiva Caro on 08-27-2024 Cholesterol.total/Sally sterol in HDL [Mass ratio] 3.11 {ratio} [facility] Serum creatinine measurement (mass/volume)Ordered By: Shiva Caro on 08-27-2024 Creatinine [Mass/Vol] 0.98 mg/dL 0.70-1.20 [facility] Serum globulin measurementOr dered By: Shiva Caro on 08-27-2024 Globulin (S) [Mass/Vol] 3.0 g/dL 2.2-4.2 [facility] Serum glucose measurement (m ass/volume)Ordered By: Shiva Caro on 08-27-2024 Glucose [Mass/Vol] 106 mg/dL High 70-99 [facility] Serum or plasma alanine stein otransferase (ALT) measurementOrdered By: Shiva Caro on 08-27-2024 ALT [Catalytic activity/Vol] 13 U/L <35 [facility] Serum or plasma albumin damaso urement (mass/volume)Ordered By: Shiva Caro on 08-27-2024 Albumin [Mass/Vol] 4.6 g/dL 3.4-4.8 [facility] Serum or plasma albumin/glob ulin mass ratioOrdered By: Shiva Caro on 08-27-2024 Albumin/Globulin [Mass ratio] 1.5 {ratio} 0.9-2.4 [facility] Serum or plasma alkaline james sphatase measurementOrdered By: Shiva Caro on 08-27-2024 ALP [Catalytic activity/Vol] 66 U/L 35-104 [facility] Serum or plasma calcium damaso urement (mass/volume)Ordered By: Shiva Caro on 08-27-2024 Calcium [Mass/Vol] 10.3 mg/dL 7.6-11.0 [facility] Serum or plasma cholesterol in HDL measurement (mass/volume)Ordered By: Shiva Caro on 08-27-2024 Cholesterol in HDL [Mass/Vol] 54 mg/dL >40 [facility] Comment on above: National Cholesterol Education Program (NCEP) guidelines:<40 mg/dL: Low HDL-cholesterol (major risk factor for CHD)>= 60 mg/dL: High HDL-cholesterol (negative risk factor for CHD)HDL-cholesterol is affected by a number of factors, e.g. smoking, exercise, hormones, sex and age. Serum or plasma cholesterol measurement (mass/volume)Ordered By: Shiva Caro on 08-27-2024 Cholesterol [Mass/Vol] 169 mg/dL <201 [facility] Comment on above: Cholesterol level, D esirable <200 mg/dLBorderline high cholesterol 200-239 mg/dLHigh cholesterol >=240 mg/dLRecommendations of the NCEP Adult Treatment Panel for the following risk-cutoff thresholds for the [place] population. Serum or plasma urea nitroge n measurement (mass/volume)Ordered By: Shiva Caro on 08-27-2024 Urea nitrogen [Mass/Vol] 17 mg/dL 4-19 [facility] Sodium levelOrdered By: Anita Caro on 08-27-2024 Sodium [Moles/Vol] 141 mmol/L 133-145 [facility] TSH DL <= 0.005 mIU/L QnOrde red By: Shiva Caro on 08-27-2024 Thyroid Stimulating Hormone (TSH) 2.420 uIU/mL 0.300-4.200 [facility] Thyroid Stim Hormone (TSH)on 08-27-2024 TSH 2.420 uIU/mL Normal 0.300-4.200 [facility] Comment on above: Order Comment: Order Date: 08/27/24 Order Info: 0786-1 - CMP Order Info: [id number] - LIPID Order Info: [id number] - TSH Performed By: #### L [id number], L500.4100, L500.4050 #### [facility] [address] [place], [place], [address] Total proteinOrdered By: Laurita Caro on 08-27-2024 Protein [Mass/Vol] 7.6 g/dL 5.9-8.4 [facility] Triglycerides measurementOrd ered By: Shiva Caro on 08-27-2024 Triglyceride [Mass/Vol] 77 mg/dL <199 [facility] Comment on above: The drugs N-Acetylcy steine and Metamizole may falsely depress this assay. Normal range: <150 mg/dLBorderline High: 150-199 mg/dLHigh: 200-499 mg/dLVery High: >500 mg/dL Vitamin D, 25-hydroxyOrdered By: Shiva Caro on 08-27-2024 Vitamin D 25-Hydroxy 45.4 ng/mL 30-100 [facility] Comment on above: Vitamin D StatusDefi ciency: <20 ng/mL (50nmol/L)Insufficiency: 20-30 ng/mL (50-75 nmol/L)Sufficiency: 30-100 ng/mL (75-250 nmol/L)Toxicity: >100 ng/mL (>250 nmol/L) Vitamin D,25 Hydroxyon 08-27 Vitamin D 25-OH 45.4 ng/mL Normal 30-100 [facility] Comment on above: Order Comment: Order Date: 08/27/24 Order Info: [id number] - CMP Order Info: [id number] - LIPID Order Info: [id number] - TSH Result Comment: Herminia min D Status Deficiency: <20 ng/mL (50nmol/L) Insufficiency: 20-30 ng/mL (50-75 nmol/L) Sufficiency: 30-100 ng/mL (75-250 nmol/L) Toxicity: >100 ng/mL (>250 nmol/L) Performed By: #### L 506.1001 #### [facility] [address] [place], [address] Basic Metabolic Profile (BMP )on 12-29-2023 BUN/CRE 13.4 RATIO Normal 10-20 [facility] Comment on above: Order Comment: Order Date: 09/27/23 Order Info: 0667-1 - BMP Performed By: #### L 509.1000, L500.2500 #### [facility] [address] [place], [address] CA,Total 9.6 mg/dL Normal 8.5-10.1 [facility] Comment on above: Order Comment: Order Date: 09/27/23 Order Info: 0667-1 - BMP Performed By: #### L 509.1000, L500.2500 #### [facility] [address] [place], [address] Chloride [Moles/Vol] 107 mmol/L Normal 98-107 [facility] Comment on above: Order Comment: Order Date: 09/27/23 Order Info: 0667- - BMP Performed By: #### L 509.1000, L500.2500 #### [facility] [address] [place], [address] CO2 [Moles/Vol] 24.0 mmol/L Normal 21.0-32.0 [facility] Comment on above: Order Comment: Order Date: 09/27/23 Order Info: 0667-1 - BMP Performed By: #### L 509.1000, L500.2500 #### [facility] [address] [place], [address] Creatinine [Mass/Vol] 0.97 mg/dL Normal 0.55-1.02 [facility] Comment on above: Order Comment: Order Date: 09/27/23 Order Info: 0667-1 - BMP Result Comment: The validity of the calculated GFR GFRAA in patients over 70 years has not been determined. Clinical correlation is essential. Performed By: #### L 509.1000, L500.2500 #### [facility] [address] [place], [address] EST GFR - AA 73 mL/min Normal >60 [facility] Comment on above: Order Comment: Order Date: 09/27/23 Order Info: 0667- - Zapnip Result Comment: Afri can Macanese GFR Calc Performed By: #### L 509.1000, L500.2500 #### [facility] [address] [place], [address] GAP 8 Normal 5-15 [facility] Comment on above: Order Comment: Order Date: 09/27/23 Order Info: 0667- - BMP Performed By: #### L 509.1000, L500.2500 #### [facility] [address] [place], [address] GFR/1.73 sq M.predicted among non-blacks MDRD (S/P/Bld) [Vol rate/Area] 61 mL/min/{1.73_m2} Normal >60 [facility] Comment on above: Order Comment: Order Date: 09/27/23 Order Info: 0667-1 - BMP Result Comment: Non- GFR Calc Performed By: #### L 509.1000, L500.2500 #### [facility] [address] [place], [address] Glucose [Mass/Vol] 102 mg/dL Normal 74-106 [facility] Comment on above: Order Comment: Order Date: 09/27/23 Order Info: 0667-1 - BMP Result Comment: Fast ing Glucose result from 100 to 125 mg/dL suggests IMPAIRED HOMEOSTASIS per A.D.A. criteria. Performed By: #### L 509.1000, L500.2500 #### [facility] [address] [place], [address] Potassium [Moles/Vol] 4.6 mmol/L Normal 3.5-5.1 [facility] Comment on above: Order Comment: Order Date: 09/27/23 Order Info: 0667-1 - BMP Performed By: #### L 509.1000, L500.2500 #### [facility] [address] [place], [address] Sodium [Moles/Vol] 139 mmol/L Normal 136-145 [facility] Comment on above: Order Comment: Order Date: 09/27/23 Order Info: 0667- - BMP Performed By: #### L 509.1000, L500.2500 #### [facility] [address] [place], [address] Urea nitrogen [Mass/Vol] 13 mg/dL Normal 7-18 [facility] Comment on above: Order Comment: Order Date: 09/27/23 Order Info: 0667- - BMP Performed By: #### L 509.1000, L500.2500 #### [facility] [address] [place], [address] L501.2276on 12-29-2023 Ionized Calcium 5.07 mg/dL Normal 4.36-5.20 [facility] Comment on above: Performed By: #### L 501.2276 #### [facility] [address] [place], [address] PTHINon 12-29-2023 PTH 21.3 pg/mL Normal 18.4-80.1 [facility] Comment on above: Order Comment: Order Date: 09/27/23 Order Info: 0565-1 - PTHIN Performed By: #### L 509.1000, L500.2500 #### [facility] [address] [place], [address] Basophil percentageOrdered B y: Shiva Caro on 08-30-2023 Basophil percentage 3.6 mg/dL 2.5-4.9 [facility] Bilirubin [Mass/Vol] 0.80 mg/dL 0.20-1.00 [facility] Comment on above: For patients on eltr ombopag therapy, use of Dimension [place] TBIL is not recommended. Chloride [Moles/Vol] 105 mmol/L 98-107 [facility] Cholesterol [Mass/Vol] 177 mg/dL <200 [facility] Comment on above: <200 mg/dL Desirable 200-240 mg/dL Borderline >240 mg/dL High Risk Glucose [Mass/Vol] 104 mg/dL 74-106 [facility] Comment on above: Fasting Glucose resu lt from 100 to 125 mg/dL suggests IMPAIRED HOMEOSTASIS per A.D.A. criteria. Potassium [Moles/Vol] 4.6 mmol/L 3.5-5.1 [facility] Protein [Mass/Vol] 8.1 g/dL 6.4-8.2 [facility] Sodium [Moles/Vol] 139 mmol/L 136-145 [facility] Triglyceride [Mass/Vol] 117 mg/dL <199 [facility] Comment on above: The drugs N-Acetylcy steine and Metamizole may falsely depress this assay.Serum Triglycerides Reference Interval Normal <150 mg/dL Borderline high 150 - 199 mg/dL High 200 - 499 mg/dL Very High > or = 500 mg/dL Laboratory - Chemistry and C hemistry - challengeOrdered By: Shiva Caro on 08-30-2023 Albumin/Globulin [Mass ratio] 1.1 {ratio} 0.9-2.4 [facility] ALP [Catalytic activity/Vol] 66 U/L 45-117 [facility] ALT [Catalytic activity/Vol] 29 U/L 13-56 [facility] Cholesterol in HDL [Mass/Vol] 51 mg/dL >40 [facility] Comment on above: The drugs N-Acetylcy steine and Metamizole may falsely depress this assay. Reference Range HDL <40 mg/dL Low HDL Cholesterol HDL >or= 60 mg/dL High HDL Cholesterol Cholesterol in LDL [Mass/Vol] 103 mg/dL 0-130 [facility] CO2 [Moles/Vol] 28.0 mmol/L 21.0-32.0 [facility] Globulin (S) [Mass/Vol] 3.8 g/dL 2.2-4.2 [facility] Magnesium [Mass/Vol] 2.0 mg/dL 1.6-2.6 [facility] Urea nitrogen/Creatinine [Mass ratio] 12.4 mg/mg 10-20 [facility] No Panel InformationOrdered By: Shiva Caro on 08-30-2023 Ionized Calcium 5.38 mg/dL 4.36-5.20 [facility] Estimated GFR (MDRD) Amer 62 mL/min >60 [facility] Comment on above: GFR Calc Estimated GFR (MDRD) Non-Af Amer 51 mL/min >60 [facility] Comment on above: Non- GFR Calc Parathyroid Hormone (Intact) 13.2 pg/mL 18.4-80.1 [facility] Vitamin D 25-Hydroxy 60.1 ng/mL [facility] Comment on above: Vitamin D 25(OH) Sta tus Range Deficiency <20 ng/mL (50nmol/L) Insufficiency 20 - 30 ng/mL (50 - 75 nmol/L) Sufficiency 30 - 100 ng/mL (75 - 250 nmol/L) Toxicity >100 ng/mL (>250 nmol/L) VLDL Cholesterol 23 mg/dL 5-40 [facility] Serum or plasma calcium damaso urement (mass/volume)Ordered By: Shiva aCro on 08-30-2023 Calcium [Mass/Vol] 10.7 mg/dL 8.5-10.1 [facility] Serum or plasma creatinine m easurement (mass/volume)Ordered By: Shiva Caro on 08-30-2023 Creatinine [Mass/Vol] 1.13 mg/dL 0.55-1.02 [facility] Comment on above: The validity of the calculated GFR & GFRAA in patients over 70 years has not been determined. Clinical correlation is essential. Serum or plasma thyroid stim ulating hormone (TSH) measurement (units/volume)Ordered By: Shiva Caro on 08-30-2023 TSH Qn 1.75 uIU/mL 0.358-3.74 [facility] Serum or plasma urea nitroge n measurement (mass/volume)Ordered By: Shiva Caro on 08-30-2023 Urea nitrogen [Mass/Vol] 14 mg/dL 7-18 [facility] Thin prep Papanicolaou smear with manual screeningOrdered By: Shiva Caro on 08-30-2023 Thin prep Papanicolaou smear with manual screening 4.3 g/dL 3.2-5.0 [facility] Thin prep Papanicolaou smear with manual screening 21 U/L 15-37 [facility] Thin prep Papanicolaou smear with manual screening 6 5-15 [facility] 11-21-2022 CNPN Telephone (TXCTGL) MITALI JOHNSON ([id number]) 1955 F Date Time Provider Department 11/21/22 JENN FRANCISCO TXSOBEIDA During your visit today, we recorded the following information about you: Jenn Francisco RN 11/21/2022 3:43 PM Signed Spoke directly with donor to confirm that she will not be scheduled for evaluation due to her recipient receiving a transplant. Jenn Francisco RN, BSN Living Kidney Donor Coordinator Allergies As of Date: 11/21/2022 Noted Allergy Reaction SULFA (SULFONAMIDE ANTIBIOTICS) 11/05/2022 2 - Rash TETANUS VACCINES AND TOXOID 11/05/2022 2 - Rash Date Reviewed: Never Reviewed Reason for Visit: Potential Kidney Donor [297] Problem List As Of Date: 11/21/2022 (None) Encounter Status:Closed by JENN FRANCISCO on 11/21/22 [facility] 11-17-2022 CNPN Telephone (TXCTGL) MITALI JOHNSON ([id number]) 1955 F Date Time Provider Department 11/17/22 JENN FRANCISCO TXCTGL During your visit today, we recorded the following information about you: Jenn Francisco RN 11/17/2022 6:38 PM Signed Notified potential kidney donor Re: tissue typing results. Potential kidney donor is ABO compatible. (D= O; recipient = O) HLA TYPING ANALYSIS HLA-AB Mismatch: 1 HLA-DR Mismatch: 0 HLA-DQ Mismatch: 0 Initial Donor Work-Up and Detailed Crossmatch. Flow Cytometry T and B Cell crossmatches negative. No detectable HLA antibody. Discussed Phase II (kidney donor evaluation) Donor is interested in scheduling Phase 2 for December 20 and . 24 hour urine jug and lab work to be completed at [facility] before evaluation appointments. Jenn Francisco RN, BSN Living Donor Residential Air Sealing Technician Allergies As of Date: 11/17/2022 Noted Allergy Reaction SULFA (SULFONAMIDE ANTIBIOTICS) 11/05/2022 2 - Rash TETANUS VACCINES AND TOXOID 11/05/2022 2 - Rash Date Reviewed: Never Reviewed Problem List As Of Date: 11/17/2022 (None) Encounter Status:Closed by JENN FRANCISCO on 02/17/23 [facility] Telephone (TXCTGL) MITALI JOHNSON ([id number]) 1955 F Date Time Provider Department 11/17/22 JENN FRANCISCO TXCTGL During your visit today, we recorded the following information about you: Allergies As of Date: 11/17/2022 Noted Allergy Reaction SULFA (SULFONAMIDE ANTIBIOTICS) 11/05/2022 2 - Rash TETANUS VACCINES AND TOXOID 11/05/2022 2 - Rash Date Reviewed: Never Reviewed Reason for Visit: Tissue Typing/HLA [1543] Problem List As Of Date: 11/17/2022 (None) Encounter Status:Closed by JENN FRANCISCO on 02/17/23 [facility] KID LIVING DNR INIT W/Uon ALLOGEN RESULTS TO FOLLOW See Allogen report to follow [facility] Comment on above: Order Comment: Speci men Type: BLOOD SPECIMEN Ordering Facility: [facility] Address: [address] [place] [address] Performed By: #### K LDINI #### [facility] CLIA [id number] OF [facility] KIDNEY TRANSPLANT ABOon 10-15 ABO O [facility] Comment on above: Order Comment: Speci men Type: BLOOD SPECIMEN Ordering Facility: [facility] Address: [address] [address] Performed By: #### K ITABO #### [facility] [place] [id number] [address] [place] [address] [place] Rh Nom (Bld) Positive [facility] Comment on above: Order Comment: Speci men Type: BLOOD SPECIMEN Ordering Facility: [facility] Address: [address] [address] Performed By: #### K ITABO #### [facility] CLIA [id number] [facility] [address] [place] CNPNon 11-05-2022 CNPN Telephone (TXCTGL) MITALI JOHNSON ([id number]) 1955 F Date Time Provider Department 11/05/22 BRYANNA SALAZAR TXCTGL During your visit today, we recorded the following information about you: Bryanna Salazar RN 11/05/2022 1:54 PM Signed Reviewed kidney living donor intake information for Mitali Johnson who would like to donate a kidney to her brother. Called and left a message for the potential donor to call the office back regarding her intake. NAZ Wiseman, RN, [facility] Kidney Residential Air Sealing Technician [facility] (Uterus, Face, Hand) Residential Air Sealing Technician Bryanna Salazar RN 11/05/2022 5:48 PM Signed Reviewed kidney living donor intake with Mitali Johnson who would like to donate to potential recipient who is a sibling to donor. COVID Vaccine = Received, date 03/16/2021 , 08/02/2020 , 07/12/2020 Height: 5'3" Weight: 165 lbs BMI: 29.23 Allergies: Medication allergies to Sulfa and Tetanus Current Medications (including prescription, OTC, herbal and medical marijuana): Lisinopril Simvastatin Metamucil Calcium Vit D Loratadine Medical History: HTN, HLD, hyperparathyroidism, hyperparathyroid adenoma, osteoporosis, Surgical History: Left parathyroidectomy, Hysterectomy d/t fibroids, Breast reduction Psychiatric History: Denies Family medical history: HTN - mother, father, brother, sister ESRD - brother Kidney Stones - daughter T2DM - mother 2 brothers, sister. (Daughter has T1DM) Lung Disease - brother has sarcoidosis Heart Disease - father had a cardiac ablation Cancer - father had skin cancer, two aunts with breast cancer, cousin with prostate cancer Colonoscopy: Per pt had in 2018, repeat in 10 years. (had in [place] with Dr. Cardozo) Mammogram: up to date PAP: Hysterectomy Substance use: Patient denies current or past use of nicotine, alcohol, or drug products TB Screening: Was the patient born outside of the [place] in any of the countries in the shaded portion of the table below? No Has the patient spent more than 3 months OR participated in relief work in these same higher risk countries (shaded portion of the following table)? No Does the patient have a history of injection drug use? No Has the patient ever resided in or worked in hospitals, nursing homes, correctional facilities, other health care settings, homeless shelters? No Does the patient have radiographic evidence of prior tuberculosis on chest radiograph? No Based upon the above TB screening criteria, the patient does not need a TB Blood screen. Patient will need a referral to ID if positive TB Blood screen, history of positive PPD or concern for active TB on CXR. there are no contraindications to proceeding at this time. Will arrange tissue typing per protocol. Next phase of process explained in detail. Donor is Interested in moving forward in kidney donation process at this time. Plan for lab draw: [x] Plan to have lab work completed at a [facility]. Reminded pt to only have labs drawn on a Mon, Tu or Weds [] Plan to have kit sent to donor for external lab site draw. Reminded pt to only have labs drawn on a Mon, Tu or Weds Informed potential donor they will be notified of results in 2-3 weeks. Advised to call donor office at [phone] with any questions or concerns. Bryanna Salazar RN Living Donor Kidney Residential Air Sealing Technician Allergies As of Date: 11/05/2022 Noted Allergy Reaction SULFA (SULFONAMIDE ANTIBIOTICS) 11/05/2022 2 - Rash TETANUS VACCINES AND TOXOID 11/05/2022 2 - Rash Date Reviewed: Never Reviewed Reason for Visit: Review Kidney Donor Intake [Other] Problem List As Of Date: 11/05/2022 (None) Encounter Status:Closed by BRYANNA SALAZAR on 11/05/22 [facility] 10-27-2022 CNPN Telephone (TXCTMN) MITALI JOHNSON ([id number]) 1955 F Date Time Provider Department 10/27/22 KIDNEY TXP COORDINATORS TXCTMN During your visit today, we recorded the following information about you: Kanika Moeller 10/27/2022 11:01 AM Signed Living Donor Kidney Transplant Inquiry Referral Patient inquired about being a potential kidney transplant living donor Have they filled out their medical information on the [facility] website? Yes Have they read the [facility] pamphlets? Yes Recipient's insurance verified for living donor? Yes Online intake has been scanned to [employer] for review by the living donor txp coordinator. Allergies As of Date: 10/27/2022 (Not on File) Date Reviewed: Never Reviewed Reason for Visit: Referral - Donor Txp [[id number]] Primary Visit Diagnosis:Kidney donor [Z52.4] Order(s):CONSULT TO TRANSPLANT CENTER [[id number]] Order #: [id number]: 1 Problem List As Of Date: 10/27/2022 (None) Encounter Status:Closed by AGGIE MORIN on [facility]27[facility] MITALI [facility]OHNS[facility] ([id number]) 1955 F Date Time Provider Department 10/27/22 FER CARVAJAL TXCTGL During your visit today, we recorded the following information about you: MAURICIO Rod 10/27/2022 2:46 PM Signed [facility] LIVING KIDNEY DONOR PROGRAM INDEPENDENT LIVING DONOR ADVOCATE NOTE On October 27, 2022 spoke with Mitali Johnson regarding beginning the living kidney donation process for her brother. Notified Mitali Johnson that living donation is a voluntary and elective process and she can confidentially opt out at any time. Notified that an Authorization to Use/Disclose Health Information for Organ Donation/Transplantat ion will be emailed to her and that this must be signed and returned to the living kidney donor office prior to the beginning of any testing. Also discussed that there are inherent risks associated with evaluation for living donation including allergic reactions to contrast, discovery of reportable infections, discovery of serious medical conditions, discovery of adverse genetic findings unknown to the donor, and discovery of certain abnormalities that will require more testing at the donor's expense or create the need for unexpected decisions on the part of the transplant team. she is also aware that will need to be current on all age appropriate preventative examinations prior to being accepted as a living donor. she verbalized understanding of above and Mitali Johnson wishes to continue the living kidney donation process for her brother. Mitali Johnson is aware that a nurse coordinator will contact her so that she can proceed with tissue typing. No further questions at this time. Contact information provided and Mitali Johnson is aware that she can contact me or the living kidney donor office at anytime with questions and concerns. MAURICIO Rod Independent Living Donor Advocate [phone] Allergies As of Date: 10/27/2022 (Not on File) Date Reviewed: Never Reviewed Reason for Visit: JOSE initial contact [Other] Problem List As Of Date: 10/27/2022 (None) Encounter Status:Closed by FER CARVAJAL on 10/27/22 [facility] Basophil percentageon 2021 Bilirubin [Mass/Vol] 0.50 mg/dL 0.20-1.00 [facility] Work Phone: Comment on above: For patients on eltr ombopag therapy, use of Dimension [place] TBIL is not recommended. Chloride [Moles/Vol] 109 mmol/L 98-107 [facility] Work Phone: Cholesterol [Mass/Vol] 178 mg/dL <200 [facility] Work Phone: Comment on above: <200 mg/dL Desirable 200-240 mg/dL Borderline >240 mg/dL High Risk Glucose [Mass/Vol] 105 mg/dL 74-106 [facility] Work Phone: Comment on above: Fasting Glucose resu lt from 100 to 125 mg/dL suggests IMPAIRED HOMEOSTASIS per A.D.A. criteria. Potassium [Moles/Vol] 4.4 mmol/L 3.5-5.1 [facility] Work Phone: Protein [Mass/Vol] 7.8 g/dL 6.4-8.2 [facility] Work Phone: Sodium [Moles/Vol] 141 mmol/L 136-145 [facility] Work Phone: Triglyceride [Mass/Vol] 157 mg/dL <199 [facility] Work Phone: Comment on above: The drugs N-Acetylcy steine and Metamizole may falsely depress this assay.Serum Triglycerides Reference Interval Normal <150 mg/dL Borderline high 150 - 199 mg/dL High 200 - 499 mg/dL Very High > or = 500 mg/dL Laboratory - Chemistry and C hemistry - challengeon 02-23-2022 ALP [Catalytic activity/Vol] 64 U/L 45-117 [facility] Work Phone: ALT [Catalytic activity/Vol] 24 U/L 13-56 [facility] Work Phone: CO2 [Moles/Vol] 27.0 mmol/L 21.0-32.0 [facility] Work Phone: Globulin (S) [Mass/Vol] 3.8 g/dL 2.2-4.2 [facility] Work Phone: Magnesium [Mass/Vol] 2.1 mg/dL 1.6-2.6 [facility] Work Phone: Urea nitrogen/Creatinine [Mass ratio] 14.2 mg/mg 10-20 [facility] Work Phone: No Panel Informationon 02-23 Estimated GFR (MDRD) Amer 79 mL/min >60 [facility] Work Phone: Comment on above: GFR Calc Estimated GFR (MDRD) Non-Af Amer 65 mL/min >60 [facility] Work Phone: Comment on above: Non- GFR Calc Ionized Calcium 5.6 mg/dL 4.5-5.6 [facility] Work Phone: Comment on above: Performed at: [address] [id number] Director: Gulshan Phelps PhD, Phone: [phone] Thyroid Stimulating Hormone (TSH) 2.09 uIU/mL 0.358-3.74 [facility] Work Phone: Vitamin D 25-Hydroxy 32.5 ng/mL [facility] Work Phone: Comment on above: Vitamin D 25(OH) Sta tus Range Deficiency <20 ng/mL (50nmol/L) Insufficiency 20 - 30 ng/mL (50 - 75 nmol/L) Sufficiency 30 - 100 ng/mL (75 - 250 nmol/L) Toxicity >100 ng/mL (>250 nmol/L) Serum or plasma albumin damaso urement (mass/volume)on 02-23-2022 Albumin [Mass/Vol] 4.0 g/dL 3.2-5.0 [facility] Work Phone: Serum or plasma albumin/glob ulin mass ratioon 02-23-2022 Albumin/Globulin [Mass ratio] 1.1 {ratio} 0.9-2.4 [facility] Work Phone: Serum or plasma calcium damaso urement (mass/volume)on 02-23-2022 Calcium [Mass/Vol] 9.5 mg/dL 8.5-10.1 [facility] Work Phone: Serum or plasma cholesterol in HDL measurement (mass/volume)on 02-23-2022 Cholesterol in HDL [Mass/Vol] 50 mg/dL >40 [facility] Work Phone: Comment on above: The drugs N-Acetylcy steine and Metamizole may falsely depress this assay. Reference Range HDL <40 mg/dL Low HDL Cholesterol HDL >or= 60 mg/dL High HDL Cholesterol Serum or plasma cholesterol in VLDL measurement (mass/volume)on 02-23-2022 Cholesterol in VLDL [Mass/Vol] 31 mg/dL 5-40 [facility] Work Phone: Serum or plasma creatinine m easurement (mass/volume)on 02-23-2022 Creatinine [Mass/Vol] 0.92 mg/dL 0.55-1.02 [facility] Work Phone: Comment on above: The validity of the calculated GFR & GFRAA in patients over 70 years has not been determined. Clinical correlation is essential. Serum or plasma low density lipoprotein (LDL) cholesterol measurement (mass/volume)on 02-23-2022 Cholesterol in LDL [Mass/Vol] 97 mg/dL 0-130 [facility] Work Phone: Serum or plasma urea nitroge n measurement (mass/volume)on 02-23-2022 Urea nitrogen [Mass/Vol] 13 mg/dL 7-18 [facility] Work Phone: Thin prep Papanicolaou smear with manual screeningon 02-23-2022 Thin prep Papanicolaou smear with manual screening 16 U/L 15-37 [facility] Work Phone: Thin prep Papanicolaou smear with manual screening 5 5-15 [facility] Work Phone: Encounters Encounter Date Encounter Type Care Provider Facility Start: 10-07-2024 End: 10-07-2024 Emergency department patient visit Gerardo [facility] Facility:[facility] Start: 09-03-2024 End: 09-03-2024 ambulatory Shiva Caro Facility:[facility] Start: 08-30-2024 Encounter for genera l adult medical examination without abnormal findings Shiva Caro [facility] Start: 08-27-2024 End: 08-27-[address] Shiva Caro MD Work Phone: [facility] Work Phone: Start: 08-27-2024 End: 08-27-[address] Shiva Caro MD -Laboratory, [place] Work Phone: Start: 08-27-2024 End: 08-27-2024 ambulatory Shiva Caro Facility:[facility] Start: 12-29-2023 End: 12-29-2023 ambulatory Shiva Caro Facility:[facility] Start: 09-14-2023 End: 09-14-2023 ambulatory [facility] Work Phone: Start: 09-14-2023 End: 09-14-2023 Patient encounter procedure [facility]-Outpatient Bone Densitometry Work Phone: Start: 08-30-2023 End: 08-30-2023 ambulatory [facility] Work Phone: Start: 08-30-2023 End: 08-30-2023 Patient encounter procedure [facility] Start: 11-21-2022 Telephone encounter Jenn Francisco RN [facility] Comment on above: Potential Kidney Don or Start: 11-17-2022 Telephone encounter Jenn Francisco RN [facility] Comment on above: Tissue Typing/HLA Start: 11-08-2022 End: 11-09-2022 ambulatory BENNIE CHRISTY Facility:[facility] Start: 11-05-2022 Orders Only Bennie Christy MD Work Phone: [facility] Comment on above: Kidney donor (Primar y Dx) Start: 10-27-2022 Telephone encounter Kidney Txp Coordinators Work Phone: Transplant Center Comment on above: Referral - Donor Txp JOSE initial contact Start: 02-23-2022 End: 02-23-2022 ambulatory [facility] Work Phone: Start: 02-23-2022 End: 02-23-2022 Patient encounter procedure [facility] Procedures Date Procedure Procedure Detail Performing Clinician Start: 09-14-2023 Dual energy X-ray absorptiometry Plan of Treatment Date Care Activity Detail Author Start: 01-14-2023 Influenza vaccination C [facility] Start: 11-08-2022 End: 11-05-2023 KID LIVING DNR INIT W/U KID LIVING DNR INIT W/U ALLOGEN Routine Kidney donor Expected: 11/08/2022 (Approximate), Expires: 11/05/2023 [facility] Work Phone: Comment on above: Expected: 11/08/2022 (Approximate), Expires: 11/05/2023 Start: 11-08-2022 End: 01-08-2023 KIDNEY TRANSPLANT ABO KIDNEY TRANSPLANT ABO Blood Bank Routine Kidney donor Expected: 11/08/2022 (Approximate), Expires: 01/08/2023 [facility] Work Phone: Comment on above: Expected: 11/08/2022 (Approximate), Expires: 01/08/2023 Start: 07-15-2022 DIABETES SCREEN DIABETES SCREEN [facility] Start: 07-15-2022 Diabetes Screening Diabetes Screenin g [facility] Start: 05-16-2022 ADVANCE DIRECTIVE DISCUSSION ADVANCE DIRECTIVE DISCUSSION [facility] Start: 05-16-2022 DEPRESSION ASSESSMENT DEPRESSION ASS ESSMENT [facility] Start: 05-11-2021 COVID-19 VACCINE (5 - Booster for Pfizer series) COVID-19 VACCINE (5 - Booster for Pfizer series) [facility] Start: 05-11-2021 COVID-19 VACCINE (5 - Pfizer series) COVID-19 VACCINE (5 - Pfizer series) [facility] Start: 2020 BONE DENSITY BONE DENSITY [facility] Start: 2020 Bone Density Screening Bone Density Screening [facility] Start: 2020 Pneumococcal Vaccine : 65+ (1 - PCV) Pneumococcal Vaccine: 65+ (1 - PCV) [facility] Start: 2020 PNEUMOCOCCAL: 65+ (1 - PCV) PNEUMOCOCCAL: 65+ (1 - PCV) [facility] Start: 2005 SHINGRIX VACCINE (1 of 2) SHINGRIX VACCINE (1 of 2) [facility] Start: 2000 COLOGUARD (FIT-DNA) COLOGUARD (FIT-D NA) [facility] Start: 2000 Colonoscopy COLONOSCOPY [facility] Start: 2000 COLORECTAL CANCER SCREENING COLORECTAL CANCER SCREENING [facility] Start: [address] COLONOGRAPHY [facility] Start: 2000 FECAL OCCULT BLOOD FECAL OCCULT BLOO D [facility] Start: 2000 Lipid 1996 panel - S aminah or Plasma Lipid Screening [facility] Start: 2000 LIPID SCREEN LIPID SCREEN [facility] Start: 2000 SIGMOIDOSCOPY SIGMOIDOSCOPY [facility] Start: [address] [facility] Start: 1974 Urine microalbumin profile [facility] Start: 1973 HEPATITIS C SCREENING HEPATITIS C [facility] Immunizations Immunization Date Immunization Notes Care Provider Nathan nur 02-23-2022 influenza virus vacc ine, unspecified formulation Jenn Francisco RN [facility] Payers Date Payer Category Payer Medicare [id number] 2023 Self-pay 2022 Medicaid [id number] Unknown [id number] Unknown [id number] Unknown [id number] Unknown [id number] Social History Date Type Detail Facility Tobacco smoking status [facility] Unknown if ever smoked [facility] Work Phone: Start: 1955 Sex Assigned At Female [facility] Tobacco smoking status [facility] Tobacco smoking consumption unknown [facility] Start: 1955 Sex Assigned At Not on file [facility] Gender identity Not on file [facility] Start: 08-30-2024 Sex Female (finding) [facility] Note 11-21-2022 Telephone Encounter - Jenn Francisco RN - 11/21/2022 3:41 PM EDT Note Date & Type Note Facility 11-21-2022 Miscellaneous Notes Formattin g of this note might be different from the original. Spoke directly with donor to confirm that she will not be scheduled for evaluation due to her recipient receiving a transplant. Jenn Francisco RN, BSN Living Kidney Donor Coordinator documented in this encounter [facility] Note 11-17-2022 Telephone Encounter - Jenn Francisco RN - 11/17/2022 6:31 PM EDT Note Date & Type Note Facility 11-17-2022 Miscellaneous Notes Formattin g of this note might be different from the original. Notified potential kidney donor Re: tissue typing results. Potential kidney donor is ABO compatible. (D= O; recipient = O) HLA TYPING ANALYSIS HLA-AB Mismatch: 1 HLA-DR Mismatch: 0 HLA-DQ Mismatch: 0 Initial Donor Work-Up and Detailed Crossmatch. Flow Cytometry T and B Cell crossmatches negative. No detectable HLA antibody. Discussed Phase II (kidney donor evaluation) Donor is interested in scheduling Phase 2 for December 20. 24 hour urine jug and lab work to be completed at [facility] before evaluation appointments. Jenn Francisco RN, BSN Living Donor Residential Air Sealing Technician documented in this encounter [facility] Note 10-27-2022 Telephone Encounter - MAURICIO Rod - 10/27/2022 2:45 PM EDT Note Date & Type Note Facility 10-27-2022 Miscellaneous Notes Formattin g of this note might be different from the original. [facility] LIVING KIDNEY DONOR PROGRAM INDEPENDENT LIVING DONOR ADVOCATE NOTE On October 27, 2022 spoke with Mitali Johnson regarding beginning the living kidney donation process for her brother. Notified Mitali Johnson that living donation is a voluntary and elective process and she can confidentially opt out at any time. Notified that an Authorization to Use/Disclose Health Information for Organ Donation/Transplantation will be emailed to her and that this must be signed and returned to the living kidney donor office prior to the beginning of any testing. Also discussed that there are inherent risks associated with evaluation for living donation including allergic reactions to contrast, discovery of reportable infections, discovery of serious medical conditions, discovery of adverse genetic findings unknown to the donor, and discovery of certain abnormalities that will require more testing at the donor's expense or create the need for unexpected decisions on the part of the transplant team. she is also aware that will need to be current on all age appropriate preventative examinations prior to being accepted as a living donor. she verbalized understanding of above and Mitali Johnson wishes to continue the living kidney donation process for her brother. Mitali Johnson is aware that a nurse coordinator will contact her so that she can proceed with tissue typing. No further questions at this time. Contact information provided and Mitali Johnson is aware that she can contact me or the living kidney donor office at anytime with questions and concerns. MAURICIO Rod Independent Living Donor Advocate [phone] documented in this encounter [facility] Note 10-27-2022 Telephone Encounter - Kanika Moeller - 10/27/2022 10:57 AM EDT Note Date & Type Note Facility 10-27-2022 Miscellaneous Notes Formattin g of this note might be different from the original. Living Donor Kidney Transplant Inquiry Referral Patient inquired about being a potential kidney transplant living donor Have they filled out their medical information on the [employer] website? Yes Have they read the [employer] pamphlets? Yes Recipient's insurance verified for living donor? Yes Online intake has been scanned to [employer] for review by the living donor txp coordinator. documented in this encounter [facility] Evaluation note Note Date & Type Note Facility Evaluation note No assessment information availa ble [facility] Work Phone: Evaluation note Note Date & Type Note Facility Evaluation note Diagnosis Kidney donor- Primary documented in this encounter [facility] Evaluation note Note Date & Type Note Facility Evaluation note Diagnosis Kidney donor- Primary documented in this encounter [facility] Reason for referral (narrative) Note Date & Type Note Facility Reason for referral (narrative) No reason for referral information available [facility] Work Phone: Reason for Referral Specialty Diagnoses / Procedures Referred By Simone craig Referred To Contact TRANSPLANT Diagnoses Kidney donor Procedures CONSULT TO TRANSPLANT CENTER OFFICE/OUTPATIENT NEW HIGH MDM 60-74 MINUTES CHEST X-RAY, FRONT&LAT ECG ROUTINE ECG W/LEAST 12 LDS TRCG ONLY W/O I&R CT ANGIOGRAPHY CHEST W/CONTRAST/NONCONTRAST CT ABDOMEN W & W/O CONTRAST Pernell Cai MD [address] [place] [address] [facility] [address] [id number] Referral ID Status Reason Start Date Expiration Date Visits Requested Visits Authorized [id number] Authorized Financial Clearance Required - OON Payor 10/27/2022 10/27/2023 99 99 Summary Purpose Family History No Family History Records FoundNo Family History Records Found Advance Directives No Advanced Directives Records FoundNo Advanced Directives Records Found Chief Complaint and Reason for Visit Chief Complaint POST REGINA Chief Complaint Admit Date EORDERS August 27, 2024 8:5 0am Additional Source Comments Goals (unrecognized section and content) Goals may be documented in a n alternate sectionGoals may be documented in an alternate sectionGoals may be documented in an alternate sectionGoals may be documented in an alternate section Source Comments (unrecognize d section and content) In the event this informatio n is protected by the Federal Confidentiality of Alcohol and Drug Abuse Patient Records regulations: The Federal rules restrict any use of the information to criminally investigate or prosecute any alcohol or drug abuse patient.[facility] the event this information is protected by the Federal Confidentiality of Alcohol and Drug Abuse Patient Records regulations: The Federal rules restrict any use of the information to criminally investigate or prosecute any alcohol or drug abuse patient.[facility] the event this information is protected by the Federal Confidentiality of Alcohol and Drug Abuse Patient Records regulations: The Federal rules restrict any use of the information to criminally investigate or prosecute any alcohol or drug abuse patient.[facility] the event this information is protected by the Federal Confidentiality of Alcohol and Drug Abuse Patient Records regulations: The Federal rules restrict any use of the information to criminally investigate or prosecute any alcohol or drug abuse patient.[facility] the event this information is protected by the Federal Confidentiality of Alcohol and Drug Abuse Patient Records regulations: The Federal rules restrict any use of the information to criminally investigate or prosecute any alcohol or drug abuse patient.[facility] the event this information is protected by the Federal Confidentiality of Alcohol and Drug Abuse Patient Records regulations: The Federal rules restrict any use of the information to criminally investigate or prosecute any alcohol or drug abuse patient.[facility] Reason for Visit (unrecogniz ed section and content) Reason Comments Referral - Donor Txp Reason Comments JOSE initial contact Reason Comments Potential Kidney Donor Reason Comments Tissue Typing/HLA INFORMATION SOURCE (unrecogn ized section and content) DATE CREATED AUTHOR 02/20/2023 [facility] DATE CREATED AUTHOR AUTHOR'S ORGANIZ ATION 10/14/2024 [facility] Care Teams (unrecognized sec tion and content) Team Status: Active Member Role Status Dates Dr. Shiva Caro MD Primary Care Provider Acti ve Team Status: Inactive Member Role Status Dates Dr. Shiva Caro MD Primary Care Provider, Att ending Provider Active Team Status: Inactive Member Role Status Dates Dr. Shiva Caro MD Primary Care Provider, Attending Provider, Referring Provider Active Team Status: Inactive Member Role Status Dates Dr. Shiva Caro MD Primary Care Provider Acti ve Start: August 27, 2024 End: August 27, 2024 Dr. Shiva Caro MD Attending Provider Active Start: August 27, 2024 End: August 27, 2024 Dr. Shiva Caro MD Referring Provider Active Start: August 27, 2024 End: August 27, 2024 FOR RECORDS PERTAINING TO PATIENTS WHO ARE OR HAVE BEEN ENROLLED IN A CHEMICAL DEPENDENCY/SUBSTANCEABUSE PROGRAM, SOME INFORMATION MAY BE OMITTED. This clinical summary was aggregated from multiple sources. Caution should be exercised in using it in the provision of clinical care. This summary normalizes information from multiple sources, and as a consequence, information in this document may materially change the coding, format and clinical context of patient data. In addition, data may be omitted in some cases. CLINICAL DECISIONS SHOULD BE BASED ON THE PRIMARY CLINICAL RECORDS. [employer] provides no warranty or guarantee of the accuracy or completeness of information in this document.
[2025-03-26 18:35] VITALS: BP 183/92; PULSE 106; RESP 19; O2SAT 95
[2025-03-26 18:36] LABS: Anion Gap 12 (5-15); BUN 10 mg/dL (4-19); BUN/Creat Ratio 8.8 RATIO (10-20); Calcium,Total 9.2 mg/dL (7.6-11.0); Carbon Dioxide 23.9 mmol/L (21.0-32.0); Chloride 106 mmol/L (98-108); Estimated Creatinine Clearance 45.92 ml/min (50-250); Glucose 118 mg/dL (70-99); Potassium 4.2 mmol/L (3.3-5.1); Troponin T High Sensitivity < 6 ng/L (<=14)
[2025-03-26 18:38] LABS: Mucous, Urine 0 SEEN /hpf (<or=2+)
--- NOTE | 2025-03-26 18:44 | RAD_ITS ---
PROCEDURE: CHEST 1 VIEW (PORTABLE) 03/26/2025 REASON FOR EXAM: HTN TECHNIQUE: Frontal view of the chest. COMPARISON: None. FINDINGS: Lungs/Pleura: Clear. Heart/Mediastinum: Normal in size. Bones/Soft tissues: Unremarkable. RAD/Chest 1 View (Portable) IMPRESSION: No acute cardiopulmonary disease. Reading Location: [id number]
[2025-03-26 18:45] LABS: Hematocrit 43.0 % (37-47); Hemoglobin 14.3 g/dL (12.0-15.0); Immature Granulocytes Count 0.020 X10^3/uL (0.0-0.0); Mean Corp Hgb Conc 33.3 g/dL (32-36); Mean Corpuscular Volume 88.8 fL (81-99); Mean Platelet Vol. 10.6 fl (6.2-12.0); NRBC Flagged by Analyzer 0 % (0-5); Platelet Count 222 K/mm3 (150-450); RBC Distribution Width CV 13.9 % (11.6-14.6); RBC Distribution Width SD 44.9 fl (35.1-43.9); Red Blood Count 4.84 M/mm3 (4.2-5.4); White Blood Count 6.4 K/mm3 (4.4-11.0)
[2025-03-26 18:49] LABS: Color, Urine Straw (Yellow); Glucose, Dipstick Normal (Normal); Ketone-Dipstick Negative (Negative); Leukocyte Esterase-Dipstick Negative /ul (Negative); Nitrite-Dipstick Negative (Negative); Occult Blood-Urine Negative /ul (Negative); Protein-Dipstick Negative (Negative); Specific Gravity, Urine 1.005 (1.002-1.030); Urine Bilirubin Dipstick Negative (Negative)
[2025-03-26 19:25] VITALS: BP 137/83; PULSE 100; RESP 16; TEMP 37.1; O2SAT 95
[2025-03-26 19:44] LABS: Red Blood Cells-Urine 0-5 SEEN /hpf (0-5); Squamous Epithelial Cells - UA 0-5 SEEN /hpf (5-10)
== END 2025-03-26 19:29 | disposition home or self-care (01) ==
PROVIDERS: Emergency Provider Emergency Medicine; PCP Family Medicine; Visit Provider Emergency Medicine
DX: I10 Essential (primary) hypertension (principal); Z90.710 Acquired absence of both cervix and uterus
CPT/HCPCS: 71045; 80048; 81001; 84484; 85025; 93005; 99284; A4216